=== PATIENT | male | born 1990 | race American Indian/Alaskan Native ===

== ENCOUNTER 2022-01-17 08:16 | Emergency (ER) | payer SELFPAY ==
[2022-01-17 08:31] VITALS: BP 119/73
[2022-01-17] MEDS ORDERED: DOXYCYCLINE 100 MG CAP PO ONE (11:16)
[2022-01-17] MEDS ORDERED: LIDOCAINE-MPF (1%) 10 MG/1 ML VIAL 5 ML INFILTRATI ONE (11:21)
--- NOTE | 2022-01-17 11:53 | Cat Scan Report ---
CT ABDOMEN AND PELVIS WITHOUT CONTRAST INDICATION / CLINICAL INFORMATION: pelvic pain Pt has bilat "knots" in the groin area. also a bit of pain rt angle of ribs no trauma started a few days ago. TECHNIQUE: Axial CT images were obtained through the abdomen and pelvis without IV contrast. All CT scans at [facility] location are performed using CT dose reduction for ALARA by means of automated exposure control. COMPARISON: None available. FINDINGS: LOWER CHEST: No significant abnormality. LIVER: No significant abnormality. GALLBLADDER: No significant abnormality. BILE DUCTS: No significant abnormality. PANCREAS: No significant abnormality. SPLEEN: No significant abnormality. ADRENALS: No significant abnormality. RIGHT KIDNEY/URETER: No significant abnormality. LEFT KIDNEY/URETER: No significant abnormality. STOMACH/SMALL BOWEL: No significant abnormality. COLON: No significant abnormality. APPENDIX: No significant abnormality. PERITONEUM: No free fluid. No free air. No fluid collection. LYMPH NODES: Multiple mildly enlarged bilateral inguinal nodes are seen, likely accounting for the pa tient's complaint. A customer solutions representative left inguinal node on image 178 of series 2 measures 1.7 cm in sh ort axis dimension. No significant adenopathy elsewhere. VASCULATURE: No significant abnormality. URINARY BLADDER: No significant abnormality. REPRODUCTIVE ORGANS: No significant abnormality. ADDITIONAL FINDINGS: None. BONES: No significant abnormality IMPRESSION: Nonspecific bilateral mild inguinal lymphadenopathy without significant adenopathy elsewhere in the a bdomen or pelvis. No other acute findings. Signer Name: Joon Sweeney MD Signed: 01/17/2022 11:49 AM Workstation Name: [id number]
--- NOTE | 2022-01-17 12:21 | Emergency Department Report ---
ED Male HPI - General Chief complaint: Urogenital-Male Stated complaint: SWELLING (PRIVATE) EXPOSED TO SYPHILIS Time Seen by Provider: 01/17/22 10:22 Source: patient Mode of arrival: Ambulatory Limitations: No Limitations - History of Present Illness Initial comments: 30-year-old male past medical history HIV who is on Biktarvy reports to the ER today with complaints of bilateral groin pain with swelling. Patient reports being informed of exposure to chlamydia gonorrhea and syphilis. Patient reports last unprotected sex was about 2 weeks ago. Patient reports experiencing symptoms for a week and a half now. Patient reports no other acute symptoms. Denies dysuria denies discharge denies swelling in the testicle area. Patient is currently unaware of CD4 count. Patient does report having an upcoming appointment with his new provider here in [place] this January 19. Patient is a resident of [place] and just recently moved here. - Related Data Previous Rx's Medication Instructions Recorded Last Taken Type Doxycycline Hyclate [Doxycycline 100 mg PO Q12HR 7 Days #14 tab 01/17/22 Unknown Rx Hyclate TAB] Ibuprofen [Motrin] 800 mg PO Q8HR PRN 7 Days #21 01/17/22 Unknown Rx tablet Allergies Allergy/AdvReac Type Severity Reaction Status Date / Time No Known Allergies Allergy Unverified 01/17/22 08:29 ED Review of Systems ROS: Stated complaint: SWELLING (PRIVATE) EXPOSED TO SYPHILIS Other details as noted in HPI Constitutional: denies: chills, fever Eyes: denies: eye pain, eye discharge, vision change ENT: denies: ear pain, throat pain Respiratory: denies: cough, shortness of breath, wheezing Cardiovascular: denies: chest pain, palpitations Endocrine: no symptoms reported Gastrointestinal: denies: abdominal pain, nausea, diarrhea Genitourinary: other (Swelling in the groin area, ulcer to penis.). denies: urgency, dysuria Musculoskeletal: denies: back pain, joint swelling, arthralgia Skin: denies: rash, lesions Neurological: denies: headache, weakness, paresthesias Psychiatric: denies: anxiety, depression Hematological/Lymphatic: denies: easy bleeding, easy bruising ED Past Medical Hx - Past Medical History Previous Medical History?: Yes Hx HIV: Yes - Medications Home Medications: Home Medications Medication Instructions Recorded Confirmed Last Taken Type Doxycycline Hyclate [Doxycycline 100 mg PO Q12HR 7 Days #14 tab 01/17/22 Unknown Rx Hyclate TAB] Ibuprofen [Motrin] 800 mg PO Q8HR PRN 7 Days #21 01/17/22 Unknown Rx tablet ED Physical Exam - General Limitations: No Limitations General appearance: alert, in no apparent distress - Head Head exam: Present: atraumatic, normocephalic - Eye Eye exam: Present: normal appearance - ENT ENT exam: Present: mucous membranes moist - Neck Neck exam: Present: normal inspection - Respiratory Respiratory exam: Present: normal lung sounds bilaterally. Absent: respiratory distress - Cardiovascular Cardiovascular Exam: Present: regular rate, normal rhythm. Absent: systolic murmur, diastolic murmur, rubs, gallop - GI/Abdominal GI/Abdominal exam: Present: soft, normal bowel sounds - Rectal Rectal exam: Present: deferred - exam: Absent: testicular tenderness, urethral discharge, scrotal swelling External exam: Present: lesions (Ulcer to the left side of penis shaft with no tenderness noted) - Extremities Exam Extremities exam: Present: normal inspection - Back Exam Back exam: Present: normal inspection - Neurological Exam Neurological exam: Present: alert, oriented X3 - Psychiatric Psychiatric exam: Present: normal affect, normal mood - Skin Skin exam: Present: warm, dry, intact, normal color. Absent: rash ED Course Vital Signs 01/17/22 08:29 Temperature 98.6 F Pulse Rate 85 Respiratory 16 Rate Blood Pressure 119/73 [Left] O2 Sat by Pulse 100 Oximetry ED Medical Decision Making - Radiology Data Radiology results: report reviewed [facility] [address] [place] [address] Cat Scan Report Signed Patient: ANUP ALEX MR#: [id number] : 1990 Acct:[id number] Age/Sex: 31 / M ADM Date: 01/17/22 Loc: ED Attending Dr: Ordering Physician: RIGO HERNANDEZ NP Date of Service: 01/17/22 Procedure(s): CT abdomen pelvis wo con Accession Number(s): [id number] cc: RIGO HERNANDEZ NP CT ABDOMEN AND PELVIS WITHOUT CONTRAST INDICATION / CLINICAL INFORMATION: pelvic pain Pt has bilat "knots" in the groin area. also a bit of pain rt angle of ribs no trauma started a few days ago. TECHNIQUE: Axial CT images were obtained through the abdomen and pelvis without IV contrast. All CT scans at this location are performed using CT dose reduction for ALARA by means of automated exposure control. COMPARISON: None available. FINDINGS: LOWER CHEST: No significant abnormality. LIVER: No significant abnormality. GALLBLADDER: No significant abnormality. BILE DUCTS: No significant abnormality. PANCREAS: No significant abnormality. SPLEEN: No significant abnormality. ADRENALS: No significant abnormality. RIGHT KIDNEY/URETER: No significant abnormality. LEFT KIDNEY/URETER: No significant abnormality. STOMACH/SMALL BOWEL: No significant abnormality. COLON: No significant abnormality. APPENDIX: No significant abnormality. PERITONEUM: No free fluid. No free air. No fluid collection. LYMPH NODES: Multiple mildly enlarged bilateral inguinal nodes are seen, likely accounting for the patient's complaint. A advertising representative left inguinal node on image 178 of series 2 measures 1.7 cm in short axis dimension. No significant adenopathy elsewhere. VASCULATURE: No significant abnormality. URINARY BLADDER: No significant abnormality. REPRODUCTIVE ORGANS: No significant abnormality. ADDITIONAL FINDINGS: None. BONES: No significant abnormality IMPRESSION: Nonspecific bilateral mild inguinal lymphadenopathy without significant adenopathy elsewhere in the abdomen or pelvis. No other acute findings. Signer Name: Joon Sweeney MD Signed: 01/17/2022 11:49 AM Workstation Name: [id number] Transcribed By: [place] Dictated By: Joon Sweeney MD Electronically Authenticated By: Joon Sweeney MD Signed Date/Time: 01/17/22 1149 DD/ 1144 TD/TT: - Medical Decision Making 31-year-old male reports to the ER with complaints of bilateral groin swelling. As well as exposure to chlamydia, gonorrhea, syphilis. Last unprotected sex was 2 weeks ago. Symptoms started a week and a half ago. Patient denies dysuria no penile discharge. No testicle swelling no testicle tenderness. Patient denies nausea vomiting and diarrhea no abdominal pain reported . No chest pain no shortness of breath no chills no fever. Patient is compliant with his Biktarvy medication for HIV. On physical exam there is bilateral swelling in the groin area at the inguinal area. Likely inguinal lymph nodes. No swelling or tenderness in the scrotum area. Ulcer is noted on left side of penis with no tenderness. Patient reports to be a ingrown hair. Hair is noted to be within the ulcer. Vital signs are stable. CT is positive for inguinal lymph node present bilateral. No other acute process noted on CT. GC chlamydia urine collected and syphilis collected. Patient to be started on doxycycline, Rocephin 500 mg given here in ER. Patient informed that he will be informed of his lab results. And if he is positive for syphilis he will get a call and he will report back to the ER for treatment. As well as inform his provider at his appointment of 19 January of his test results if unable to get back to the ER. Patient agrees with plan of care and verbalized understanding. If symptoms are to get worse patient informed to report back to the ER. Critical care attestation.: If time is entered above; I have spent that time in minutes in the direct care of this critically ill patient, excluding procedure time. ED Disposition Clinical Impression: Inguinal adenopathy, Exposure to STD Disposition: 01 HOME / SELF CARE / HOMELESS Is pt being admited?: No Condition: Stable Instructions: Lymphadenopathy, Safe Sex Prescriptions: Doxycycline Hyclate [Doxycycline Hyclate TAB] 100 mg PO Q12HR 7 Days #14 tab Ibuprofen [Motrin] 800 mg PO Q8HR PRN 7 Days #21 tablet PRN Reason: Pain , Severe (7-10) Referrals: PRIMARY CARE, [Primary Care Provider] - 3-5 Days
[2022-01-17 13:45] LABS: Bilirubin,Urine NEG (Negative); Blood,Urine NEG (Negative); Color,Urine Yellow (Yellow); Protein,Urine <15 mg/dL mg/dL (Negative); Urobilinogen,Urine < 2.0 mg/dL (<2.0)
[2022-01-17 13:50] LABS: Mucus,Urine 2+ /HPF
== END 2022-01-17 13:40 | disposition home or self-care (01) ==
LOC: ED 08:16
DX: R59.0 Localized enlarged lymph nodes (principal); Z20.2 Contact with and (suspected) exposure to infections with a predominantly sexual mode of transmission; Z21 Asymptomatic human immunodeficiency virus [HIV] infection status
CPT/HCPCS: 36415; 74176; 81001; 86592; 87591; 96372; 99284; J0696; J3490; 87086